=== PATIENT | female | born 1960 | race Caucasian/White ===

== ENCOUNTER 2017-10-12 05:53 | Emergency (ER) | payer BC ==
[2017-10-12] MEDS: Diatrizoate Meglumine/Diatrizoate Sodium 37% 30 ML Bottle PO SCH (06:35)
--- NOTE | 2017-10-12 07:37 | EDM.PDOC ---
ED HPI GENERAL MEDICAL PROBLEM - General Chief Complaint: General Stated Complaint: VAGINAL DISCHARGE Time Seen by Provider: 10/12/17 06:30 Source of Information: Reports: Patient History Limitations: Reports: No Limitations - History of Present Illness INITIAL COMMENTS - FREE TEXT/NARRATIVE: Pt is from [facility] her on fishing trip. According to patient she woke up today morning feeling some drainage from the vaginal , the drainage was thick and clear when it started, but now she has been having some blood tinged discharge. No foul smell to it. No fever or chills. Pt did have dull left lower quadrant pain for past 1 wk, which she claims is better now. Apparently patient was diagnosed with a diverticular abscess on 10/07/17 and was started on cipro and flagyl. The abscess was 4.5 cms and abutting the bladder. Onset: Today Onset Date: 10/12/17 Onset Time: 05:00 Severity: Mild Associated Symptoms: Denies: Confusion, Chest Pain, Cough, Diaphoresis, Fever/ Chills, Nausea/Vomiting, Rash, Seizure, Shortness of Breath, Syncope, Weakness - Related Data Allergies Allergy/AdvReac Type Severity Reaction Status Date / Time No Known Allergies Allergy Verified 10/12/17 06:41 Home Meds: Home Meds Ciprofloxacin HCl [Cipro] 750 mg PO BID 10/12/17 [History] metroNIDAZOLE [Flagyl] 500 mg PO ONETIME 10/12/17 [History] Past Medical History - Past Health History Medical/Surgical History: Denies Medical/Surgical History Social & Family History - Family History Family Medical History: Noncontributory - Tobacco Use Smoking Status *Q: Current Every Day Smoker Years of Tobacco use: 40 Packs/Tins Daily: 1 - Recreational Drug Use Recreational Drug Use: No ED ROS GENERAL - Review of Systems Review Of Systems: See Below Constitutional: Denies: Fever, Chills, Malaise, Weakness HEENT: Denies: Rhinitis, Sinus Problem, Throat Pain, Throat Swelling Respiratory: Denies: Shortness of Breath, Wheezing, Cough, Sputum Cardiovascular: Denies: Chest Pain, Lightheadedness Endocrine: Denies: Fatigue, High Glucose GI/Abdominal: Reports: Abdominal Pain. Denies: Nausea, Vomiting : Denies: Dysuria, Flank Pain, Frequency, Urgency, Urinary Retention Musculoskeletal: Denies: Joint Pain, Joint Swelling Skin: Denies: Bruising, Pruritis, Rash ED EXAM, GENERAL - Physical Exam Exam: See Below Exam Limited By: No Limitations General Appearance: Alert, WD/WN, No Apparent Distress Eye Exam: Bilateral Eye: EOMI, PERRL Ears: Normal External Exam, Normal Canal, Hearing Grossly Normal, Normal TMs Ear Exam: Bilateral Ear: Auricle Normal, Canal Normal, TM normal Nose: Normal Inspection, Normal Mucosa, No Blood Throat/Mouth: Normal Inspection, Normal Lips, Normal Teeth, Normal Gums, Normal Oropharynx, Normal Voice, No Airway Compromise Head: Atraumatic, Normocephalic Neck: Normal Inspection, Supple, Non-Tender, Full Range of Motion Respiratory/Chest: No Respiratory Distress, Lungs Clear, Normal Breath Sounds, No Accessory Muscle Use, Chest Non-Tender Cardiovascular: Normal Peripheral Pulses, Regular Rate, Rhythm, No Edema, No Gallop, No JVD, No Murmur, No Rub GI/Abdominal: Normal Bowel Sounds, Soft, Non-Tender, No Organomegaly, No Distention, No Abnormal Bruit, No Mass (Female) Exam: Normal External Exam, Vaginal Discharge (mucosanginous), Other (Exam done with [place]: Kathleen Kirby: there is thick whitish blood tingled drainage seen in the vaginal vault. All the drainage was cleaned and watched, hard to find the fitula. No drainage from the urethral orifice.). No: Vaginal Lesions Course - Vital Signs Text/Narrative:: Pt's clinical exam is normal other the the muco-sanginous vaginal discharge noted. It does appear like she might have developed a small fistula communicating between the diverticular abscess and the vagina . Ct abdomen does not show the large abscess that was noted before. there is inflammatory changes in the rectosigmoid junction and left side of bladder. Air in the vagina suspicious for a colo-vaginal fistula.Her CBC shows white count of 8 and her CMP appears normal other then mild elevation of the creatinine.Pt claims she is not drinking enough fluids. Advised to continue antibiotics and drink lot of fluids. The drainage should slow down. She should followup with her primary care provider next week. Pt claims she already has appointment for Saturday for followup. - Orders/Labs/Meds Orders: Active Orders 24 hr Category Date Time Status Abdomen Pelvis wo Cont [CT] Stat Exams 10/12/17 07:28 Taken Pelvis wo Cont [CT] Stat Exams 10/12/17 08:49 Taken Labs: Laboratory Tests 10/12/17 10/12/17 Range/Units 07:27 07:27 WBC 11.3 H (4.0-11.0) K/uL RBC 4.20 (3.80-5.80) M/uL Hgb 12.2 (11.5-16.5) g/dL Hct 36.9 L (37.0-47.0) % MCV 88 (76-96) fL MCH 29.0 (27.0-32.0) pg MCHC 33.1 (31.0-35.0) g/dL RDW 14.5 (11.0-16.0) % Plt Count 467 (150-500) K/uL MPV 8.3 (6.0-10.0) fL Neut % (Auto) 78.3 H (45.0-70.0) % Lymph % (Auto) 9.8 L (20.0-40.0) % [place] % (Auto) 10.2 H (3.0-10.0) % Eos % (Auto) 1.3 (1.0-5.0) % Baso % (Auto) 0.4 (0.0-0.5) % Neut # (Auto) 8.81 H (2.00-7.50) K/uL Lymph # (Auto) 1.11 L (1.50-4.00) K/uL [place] # (Auto) 1.15 H (0.20-0.80) K/uL Eos # (Auto) 0.15 (0.04-0.40) K/uL Baso # (Auto) 0.05 (0.02-0.10) K/uL Sodium 140 (136-145) mmol/L Potassium 3.7 (3.5-5.1) mmol/L Chloride 103 (98-107) mmol/L Carbon Dioxide 25.7 (21.0-32.0) mmol/L Anion Gap 15.0 (5.0-15.0) mmol/L BUN 8 (8-26) mg/dL Creatinine 1.21 H (0.55-1.02) mg/dL Est Cr Clr Drug Dosing TNP Estimated GFR (MDRD) 46 L (>60) MLS/MIN BUN/Creatinine Ratio 6.6 (6-25) Glucose 146 H (74-100) mg/dL Calcium 8.9 (8.5-10.1) mg/dL Total Bilirubin 0.2 (0.0-1.0) mg/dL AST 16 (15-37) U/L ALT 27 (12-78) U/L Alkaline Phosphatase 107 (46-116) U/L Total Protein 7.5 (6.4-8.2) g/dL Albumin 3.0 L (3.4-5.0) g/dL Globulin 4.5 H (2.2-4.2) g/dL Albumin/Globulin Ratio 0.7 L (0.8-2.0) Departure - Departure Time of Disposition: 09:30 Disposition: Home, Self-Care 01 Condition: Fair Clinical Impression: Vaginal fistula - Discharge Information Referrals: PCP,None [Primary Care Provider] - Forms: ED Department Discharge Additional Instructions: Drink plenty of fluids-at least 6 glasses of water a day. Continue with antibiotic. Keep the appointment that you have set up for Saturday. 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
--- NOTE | 2017-10-14 08:28 | CT ---
DATE OF SERVICE: 10/12/17 CLINICAL DATA: r/o vaginal fistula from the diverticular abscess UNENHANCED ABDOMEN AND PELVIC CT: Multislice acquisition through the abdomen and pelvis without IV, but with oral contrast was performed. No priors. The lung bases are clear. The liver is normal size and homogeneous in attenuation. No focal hepatic lesions. The gallbladder appears normal. The spleen appears normal. The pancreas appears normal. The right and left adrenals appear normal. The right and left kidneys appear normal. No nephrocalcinosis or nephrolithiasis. No hydronephrosis or hydroureter. There is a small amount of fluid within the bladder. It appears grossly normal. The appendix is not dilated. No evidence of appendicitis. There is diverticulosis throughout the colon. There is pericolonic fat stranding and fluid adjacent to the distal descending and proximal sigmoid colon consistent with diverticulitis. There are also small extracolonic gas collections consistent with perforation. There is mural thickening throughout this segment of the colon also. I do not see evidence of a diverticular abscess. No other significant findings. The patient's physician was notified of the findings by telephone and by [facility] preliminary radiology report. [id number] [facility]
--- NOTE | 2017-10-14 08:32 | CT ---
DATE OF SERVICE: 10/12/17 CLINICAL DATA: Possible Fistula PELVIC CT: Multislice acquisition through the pelvis with oral, but without IV contrast was performed. Again noted is the diverticulosis of the distal descending and sigmoid colon. There is persistent pericolonic fat stranding adjacent to the distal descending and proximal sigmoid colon consistent with diverticulitis. There are small gas collections extrinsic to the sigmoid colon consistent with contained perforations. There is also mural thickening throughout this segment of the colon. These findings are consistent with diverticulitis. No evidence of a diverticular abscess. I do not see definite evidence for a colovaginal fistula. [id number] [facility]
== END 2017-10-12 09:40 | disposition home or self-care (01) ==
LOC: LB.ED 05:53
DX: N82.8 Other female genital tract fistulae (principal); K57.80 Diverticulitis of intestine, part unspecified, with perforation and abscess without bleeding; F17.210 Nicotine dependence, cigarettes, uncomplicated
CPT/HCPCS: 36415; 72192; 74176; 80053; 85025; 99284-25; Q9963